=== PATIENT | female | born 2000 | race Caucasian/White ===

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

== ENCOUNTER 2018-05-11 23:05 | Emergency (ER) | payer BC ==
[~2018-05-11] VITALS: Ht 177.8 cm; Wt 115.0 kg
[2018-05-11] MEDS ORDERED: ALBUTEROL/IPRATROPIUM 2.5MG/0.5MG, 3 ML ONE (23:54)
[2018-05-12] MEDS ORDERED: SODIUM CHLORIDE FLUSH 10ML SYR IVF ONE
[2018-05-12] MEDS ORDERED: ALBUTEROL/IPRATROPIUM 2.5MG/0.5MG, 3 ML NPPB ONE
[2018-05-12 00:25] LABS: BASOPHILS # (AUTO) 0.04 x10^3/uL (0-0.3); BASOPHILS % (AUTO) 0 % (0-1); EOSINOPHILS % (AUTO) 0 % (1-7); LYMPHOCYTES # (AUTO) 1.97 x10^3/uL (1-6.1); LYMPHOCYTES % (AUTO) 14 % (22-44); MD NO; MEAN CORPUSCULAR HEMOGLOBIN 27.3 pg (27.0-34.8); MEAN CORPUSCULAR HGB CONC 32.9 g/dL (32.4-35.8); MEAN PLATELET VOLUME 7.7 fL (7.4-10.4); MONOCYTES # (AUTO) 0.63 x10^3/uL (0-1.4); MONOCYTES % (AUTO) 5 % (2-9); NEUTROPHILS # (AUTO) 11.42 x10^3/uL (1.8-8.0); NEUTROPHILS % (AUTO) 81 % (42-75); PLATELET COUNT 328 x10^3/uL (130-400); RED BLOOD COUNT 5.19 x10^6/uL (3.82-5.3)
[2018-05-12 00:37] LABS: ALBUMIN 4.3 g/dL (3.4-5.0); ANION GAP 10 mmol/L (5-15); CALCIUM 9.6 mg/dL (8.5-10.1); CHLORIDE 108 mmol/L (98-107); CREATININE 0.93 mg/dL (0.55-1.02)
[2018-05-12 01:38] VITALS: BP 132/68
== END 2018-05-12 01:52 | disposition home or self-care (01) ==
LOC: ED 23:39
DX: J20.9 Acute bronchitis, unspecified (principal); J45.909 Unspecified asthma, uncomplicated
CPT/HCPCS: 36415; 71046; 80048; 82040; 85025; 85379; 93005; 94640; 99285; J7620

== ENCOUNTER 2018-08-23 17:22 | Emergency (ER) | payer BC ==
[~2018-08-23] VITALS: Ht 177.8 cm; Wt 116.8 kg
--- NOTE | 2018-08-23 17:59 | NUR ---
pt upright on gurney awake & comfortable, responds approp to staff, NAD, comfort measures provided, call light within reach.
--- NOTE | 2018-08-23 18:47 | NUR ---
report given to Migdalia
--- NOTE | 2018-08-23 18:49 | NUR ---
REPORT RECEIVED FROM GAYATHRI JOHNS
[2018-08-23] MEDS ORDERED: ALBUTEROL SULFATE 2.5 MG/3 ML ONE (18:54)
[2018-08-23] MEDS ORDERED: ALBUTEROL SULFATE 2.5 MG/3 ML NPPB ONE (19:00)
[2018-08-23 19:24] VITALS: BP 151/58
== END 2018-08-23 20:17 | disposition home or self-care (01) ==
LOC: ED 18:00
DX: T78.01XA Anaphylactic reaction due to peanuts, initial encounter (principal); J45.909 Unspecified asthma, uncomplicated
CPT/HCPCS: 93005; 94640; 99283; J7512; J7613

== ENCOUNTER 2018-10-27 17:06 | Emergency (ER) | payer BC ==
[~2018-10-27] VITALS: Ht 177.8 cm; Wt 116.0 kg
[2018-10-27 17:10] VITALS: BP 139/89
--- NOTE | 2018-10-27 17:17 | NUR ---
PT REFUSES TO REMOVE CAST AND LOOK FOR [place]. PT STATES THAT SHE MIGHT DRIVE BACK TO [place] TO HAVE HER ORTHO CHECK
--- NOTE | 2018-10-27 17:31 | NUR ---
Patient/Caregiver given discharge instructions and they have confirmed that they understand the instructions. Patient ambulatory with steady gait. PT LEFT WITH ALL PERSONAL BELONGINGS.
== END 2018-10-27 17:28 | disposition home or self-care (01) ==
LOC: ED 17:22
DX: M79.632 Pain in left forearm (principal); J45.909 Unspecified asthma, uncomplicated
CPT/HCPCS: 99281